=== PATIENT | male | born 1960 | race Caucasian/White ===

== ENCOUNTER 2018-10-25 20:19 | Emergency (ER) | payer OTHER ==
[2018-10-25 20:38] LABS: MODE ROOM AIR; MetHgb Venous 0.3 %; Sample Type Blood venous; Site VENOUS LINE; Venous COHb 1.8 %; Venous Fraction OxyHgb 88.2 %; Venous Oxygen Sat 90.1 mmHG (55.0-75.0); Venous Total Hemglobin 16.2 g/dl
[2018-10-25] MEDS: SOD CHLORIDE 0.9% 1,000 ML IV (20:51)
[2018-10-25] MEDS: ACETAMINOPHEN 500 MG TAB PO (20:51)
[2018-10-25 21:00] LABS: ADD MAN DIFF? NO
[2018-10-25 21:07] LABS: URINE PH (Dip) POC 7.5 (5.0-8.5)
[2018-10-25 21:07] LABS: URINE BLOOD (Dip) POC Trace-intact (NEGATIVE); URINE KETONES (Dip) POC Trace (NEGATIVE); URINE LEUKOCYTE EST (Dip) POC Negative (NEGATIVE); URINE NITRITE (Dip) POC Negative (NEGATIVE); URINE TOTAL PROTEIN POC Negative (NEGATIVE)
[2018-10-25 21:16] LABS: BASOPHILS % 0.3 % (0.0-2.0); EOSINOPHILS % 0.3 % (0.0-7.0); HEMATOCRIT 44.7 % (42.0-52.0); HEMOGLOBIN 15.4 g/dl (14.0-18.0); LYMPHOCYTES # 1.8 10^3/ul (0.8-2.9); LYMPHOCYTES % 20.5 % (15.0-51.0); MEAN CORPUSCULAR HEMOGLOBIN 32.7 pg (29.0-33.0); MEAN CORPUSCULAR HGB CONC 34.5 g/dl (32.0-37.0); MEAN CORPUSCULAR VOLUME 94.9 fl (82.0-101.0); MEAN PLATELET VOLUME 11.6 fl (7.4-10.4); MONOCYTE # 0.8 10^3/ul (0.3-0.9); MONOCYTES % 8.7 % (0.0-11.0); NEUTROPHILS % 69.5 % (39.0-77.0); PLATELET COUNT 204 10^3/UL (140-415); RED BLOOD COUNT 4.71 10^6/ul (4.70-6.10); RED CELL DISTRIBUTION WIDTH 11.7 % (11.5-14.5)
[2018-10-25 21:16] LABS: WHITE BLOOD COUNT 8.6 10^3/ul (4.8-10.8)
[2018-10-25 21:17] LABS: ANION GAP 17 (5-13); BLOOD UREA NITROGEN 11 mg/dl (7-20); CALCIUM 10.6 mg/dl (8.4-10.2); CARBON DIOXIDE 20 mmol/L (21-31); CHLORIDE 101 mmol/L (97-110); Estimated GFR > 60 mL/min (>60); POTASSIUM 4.7 mmol/L (3.5-5.1); SODIUM 138 mmol/L (135-144)
[2018-10-25 21:20] LABS: GLUCOSE 421 mg/dl (70-220)
[2018-10-25 21:24] LABS: INR 0.89; PROTIME 12.2 Sec (11.9-14.9)
[2018-10-25 21:25] LABS: PARTIAL THROMBOPLASTIN TIME 26.7 Sec (23.0-35.0)
[2018-10-25 21:30] LABS: AMPHETAMINE/METHAMPHETAMINE Negative (NEGATIVE); BARBITURATES Negative (NEGATIVE); BENZODIAZEPINES Negative (NEGATIVE); CANNABINOIDS Negative (NEGATIVE); COCAINE Negative (NEGATIVE); OPIATES Negative (NEGATIVE)
[2018-10-25] MEDS: IOHEXOL 300MG/ML 150 ML BTL (21:53)
[2018-10-25] MEDS: SOD CHLORIDE 0.9% 100 ML (21:53)
[2018-10-25] MEDS: INSULIN LISPRO 100 UNIT/ML VIAL SC (23:15)
[2018-10-25] MEDS: LACTATED RINGER'S 1,000 ML IV (23:16)
[2018-10-26 00:18] LABS: ANION GAP 10 (5-13); BLOOD UREA NITROGEN 11 mg/dl (7-20); CALCIUM 9.4 mg/dl (8.4-10.2); CARBON DIOXIDE 27 mmol/L (21-31); CHLORIDE 101 mmol/L (97-110); CREATININE 0.67 mg/dl (0.61-1.24); Estimated GFR > 60 mL/min (>60); GLUCOSE 334 mg/dl (70-220); POTASSIUM 4.3 mmol/L (3.5-5.1); SODIUM 138 mmol/L (135-144)
== END 2018-10-26 01:03 | disposition home or self-care (01) ==
LOC: E/R 10-26 01:03
DX: S13.9XXA Sprain of joints and ligaments of unspecified parts of neck, initial encounter (principal); E11.65 Type 2 diabetes mellitus with hyperglycemia; R82.4 Acetonuria; R10.9 Unspecified abdominal pain; R93.0 Abnormal findings on diagnostic imaging of skull and head, not elsewhere classified; V49.40XA Driver injured in collision with unspecified motor vehicles in traffic accident, initial encounter
CPT/HCPCS: 36415; 70450; 71260; 72125; 74177; 80048; 80307; 81003; 82803; 82962; 85025; 85610; 85730; 96372; 99285-25